=== PATIENT | female | born 1960 | race Two or more races ===

== ENCOUNTER 2018-07-11 09:22 | Emergency (ER) | payer MEDICAID ==
[~2018-07-11] VITALS: Ht 160 cm; Wt 72.6 kg
[2018-07-11 09:33] VITALS: BP 149/74
--- NOTE | 2018-07-11 09:47 | Emergency Room Report ---
History of Present Illness General Chief Complaint: Pain Source: Patient Present Illness HPI Patient present with pain to the left heel Ongoing for the past 2 weeks denies any obvious trauma or fall Pain is worse with bearing weight Patient points to the mid base of the foot pain to the heel and then upwards to the upper thigh and hip area Denies any fevers or chills denies any open cuts or wounds Allergies: Coded Allergies: No Known Allergies (Unverified , 07/11/18) Patient History Past Medical History: see triage record Pertinent Family History: none Now: No Reviewed Nursing Documentation: PMH: Agreed; PSxH: Agreed Nursing Documentation-PMH Hx Hypertension: Yes - cholesterol Hx Diabetes: Yes Review of Systems All Other Systems: negative except mentioned in HPI Physical Exam Vital Signs Date Time Temp Pulse Resp B/P (MAP) Pulse Ox O2 Delivery O2 Flow Rate FiO2 07/11/18 09:25 98.4 61 16 149/74 96 Room Air 98.4 Sp02 EP Interpretation: reviewed, normal General Appearance: well appearing, no apparent distress Head: normocephalic, atraumatic Eyes: bilateral eye PERRL, bilateral eye EOMI ENT: normal pharynx, no angioedema Respiratory: lungs clear, normal breath sounds Cardiovascular #1: regular rate, rhythm Genitourinary: no CVA tenderness Musculoskeletal: other - Patient does have some irritation to the base of the heel on the left side there is tenderness with extending the foot, no obvious fluctuance no obvious open cuts, Neurologic: alert, oriented x3 Skin: other - As above Lymphatic: no adenopathy Medical Decision Making Diagnostic Impression: Primary Impression: Plantar fasciitis Additional Impression: Heel spur ER Course Given the patient's discomfort and presentation imaging study is obtained which does reveal a heel spur Patient's exam is consistent with likely plantar fasciitis and possible exacerbation with heel spur Patient also has several toenails missing on the left foot I feel that she would benefit from close podiatry follow-up She is provided with referral here and will follow closely Other X-Ray Diagnostic Results Other X-Ray Diagnostic Results : X-Ray ordered: Left foot # of Views/Limited Vs Complete: 3 View Indication: Pain EP Interpretation: Yes Interpretation: no dislocation, no soft tissue swelling, no fractures, other - Heel spur Impression: No acute disease Electronically Signed by: Ruthie Keen DO Last Vital Signs Date Time Temp Pulse Resp B/P (MAP) Pulse Ox O2 Delivery O2 Flow Rate FiO2 07/11/18 09:33 98.4 87 16 149/74 96 Room Air 98.4 Status: improved Disposition: HOME, SELF-CARE Condition: Improved Scripts Ibuprofen* (MOTRIN*) 600 Mg Tablet 600 MG ORAL Q8H PRN for For Pain, #20 TAB 0 Refills Prov: Ruthie Keen DO 07/11/18 Additional Instructions: Patient is provided with the discharge instructions notified to follow up with primary doctor in the next 2-3 days otherwise return to the er with any worsening symptoms. Please note that this report is being documented using [facility] [employer] technology. This can lead to erroneous entry secondary to incorrect interpretation by the dictating instrument. Ruthie Keen DO Jul 11, 2018 09:46
--- NOTE | 2018-07-11 11:12 | Diagnostic Imaging Report ---
Indication: Pain Technique: 3 views left foot Comparison: none Findings: There is a plantar spur. No acute fractures. No dislocations. The joint spaces are preserved. Impression: Negative
[2018-07-11] MEDS ORDERED: IBUPROFEN600 MG ORAL (11:31)
[2018-07-11 11:42] VITALS: BP 134/78
== END 2018-07-11 11:42 | disposition home or self-care (01) ==
LOC: EMR 09:48
DX: M72.2 Plantar fascial fibromatosis (principal); M77.32 Calcaneal spur, left foot; E11.9 Type 2 diabetes mellitus without complications; I10 Essential (primary) hypertension; E78.00 Pure hypercholesterolemia, unspecified
CPT/HCPCS: 99283